=== PATIENT | male | born 1965 | race Hispanic/Latino ===

== ENCOUNTER 2018-12-23 08:56 | Observation (INO) | payer OTHER ==
--- NOTE | 2018-12-23 09:24 | ED PDOC ---
HPI: Chest Pain Time Seen by Provider: 12/23/18 09:07 Chief Complaint (Nursing): Chest Pain History Per: Patient Onset/Duration Of Symptoms: Days (1) Current Symptoms Are (Timing): Still Present Severity: Mild Quality: Tightness Associated Symptoms: denies: Dyspnea, Diaphoresis Modifying Factors: None Exacerbating Factors: None Alleviating Factors: None Additional Complaint(s): Chest tightness radiating to left shoulder since last night. Denies nausea or SOB. Had similar episode 1 year ago with elevated Troponins, had cardiac cath afterward which was normal. Denies cough or fever. Denies calf pain or swelling. Past Medical History Vital Signs: Last Vital Signs Temp Pulse Resp BP Pulse Ox 98 12/23/18 09:02 Primary Care Provider: FAMILY PROVIDER,NO - Medical History PMH: HTN Other PMH: Elevaterd troponin - Family History Family History: States: Unknown Family Hx - Allergies Allergies/Adverse Reactions: Allergies Allergy/AdvReac Type Severity Reaction Status Date / Time No Known Allergies Allergy Verified 12/23/18 09:49 Review of Systems ROS Statement: Except As Marked, All Systems Reviewed And Found Negative Cardiovascular: Positive for: Chest Pain Physical Exam - Reviewed Nursing Documentation Reviewed: Yes Vital Signs Reviewed: Yes - Physical Exam Appears: Positive for: Non-toxic, No Acute Distress Head Exam: Positive for: ATRAUMATIC, NORMAL INSPECTION, NORMOCEPHALIC Skin: Positive for: Normal Color, Warm, DRY Eye Exam: Positive for: EOMI, Normal appearance, PERRL ENT: Positive for: Normal ENT Inspection Neck: Positive for: Normal, Painless ROM Cardiovascular/Chest: Positive for: Regular Rate, Rhythm, Chest Non Tender Respiratory: Positive for: CNT, Normal Breath Sounds Gastrointestinal/Abdominal: Positive for: Normal Exam, Soft Back: Positive for: Normal Inspection Extremity: Positive for: Normal ROM. Negative for: Calf Tenderness, Swelling Neurological/Psych: Positive for: Awake, Alert, Normal Tone - Laboratory Results Result Diagrams: 12/23/18 09:27 12/23/18 09:27 - ECG O2 Sat by Pulse Oximetry: 98 Disposition - Clinical Impression Clinical Impression: Chest pain - Patient ED Disposition Is Patient to be Admitted: Yes - Disposition Disposition Time: 10:33 Condition: FAIR Forms: [employer] (American) - Pt Status Changed To: Hospital Disposition Of: Observation - POA Present On Arrival: None
[2018-12-23 09:31] LABS: BASO % 0.8 % (0.0-2.0); EOS # 0.1 K/uL (0.0-0.7); EOS % 1.6 % (0.0-4.0); HEMOGLOBIN 15.8 g/dL (12.0-18.0); LYMPH # 1.4 K/uL (1.0-4.3); LYMPH % 23.8 % (20.0-40.0); MEAN CELL VOLUME 90.8 fl (80.0-94.0); MEAN CORPUSCULAR HEMOGLOBIN 31.4 pg (27.0-31.0); MEAN CORPUSCULAR HGB CONC 34.6 g/dL (33.0-37.0); MEAN PLATELET VOLUME 7.1 fl (7.2-11.7); MONO # 0.6 K/uL (0.0-0.8); MONO % 10.5 % (0.0-10.0); NEUT # 3.8 K/uL (1.8-7.0); NEUT % 63.3 % (50.0-75.0); NRBC % 0.1 % (0.0-0.0); RBC 5.03 Mil/uL (4.40-5.90); RED CELL DISTRIBUTION WIDTH 13.1 % (11.5-14.5)
[2018-12-23 09:46] LABS: ALB/GLOB RATIO 1.6 (1.0-2.1); ALBUMIN 4.2 g/dL (3.5-5.0); ALT/SGPT 33 U/L (21-72); AST/SGOT 30 U/L (17-59); BLOOD UREA NITROGEN 16 mg/dl (9-20); CALCIUM 8.8 mg/dL (8.4-10.2); GFR NON-AFRICAN AMERICAN > 60
--- NOTE | 2018-12-23 11:14 | RAD ---
Date of service: 12/23/2018 HISTORY: chest pain COMPARISON: No prior. TECHNIQUE: Chest PA and lateral views FINDINGS: LUNGS: No active pulmonary disease. PLEURA: No significant pleural effusion identified. No pneumothorax apparent. CARDIOVASCULAR: No aortic atherosclerotic calcification present. Normal cardiac size. No pulmonary vascular congestion. OSSEOUS STRUCTURES: No significant abnormalities. VISUALIZED UPPER ABDOMEN: Normal. OTHER FINDINGS: None. IMPRESSION: No active disease.
[2018-12-23 13:06] VITALS: RESP 18
[2018-12-24 04:53] VITALS: TEMP 97.9
[2018-12-24 08:10] VITALS: BP 126/84; O2SAT 97
--- NOTE | 2018-12-24 09:15 | CP.PCM.CON ---
History of Present Illness - History of Present Illness History of Present Illness: patient seen examined. full consutl to follow cardiac enzymes negative Normal carh one year ago as per patient recommend Indocin 25 mg BID x 7 days can d/c home. outpatient follow up Past Patient History - Past Medical History & Family History Past Medical History?: Yes - Past Social History Smoking Status: Never Smoked - CARDIAC Hx Cardiac Disorders: Yes - PULMONARY Hx Respiratory Disorders: No - NEUROLOGICAL Hx Neurological Disorder: No - HEENT Hx HEENT Problems: No - RENAL Hx Chronic Kidney Disease: No - ENDOCRINE/METABOLIC Hx Endocrine Disorders: No - HEMATOLOGICAL/ONCOLOGICAL Hx Blood Disorders: No Hx AIDS: No Hx Human Immunodeficiency Virus (HIV): No - INTEGUMENTARY Hx Dermatological Problems: No - MUSCULOSKELETAL/RHEUMATOLOGICAL Hx Musculoskeletal Disorders: No Hx Falls: No - GASTROINTESTINAL Hx Gastrointestinal Disorders: No - GENITOURINARY/GYNECOLOGICAL Hx Genitourinary Disorders: No - PSYCHIATRIC Hx Psychophysiologic Disorder: No Hx Substance Use: No - SURGICAL HISTORY Hx Angiogram: Yes Meds Allergies/Adverse Reactions: Allergies Allergy/AdvReac Type Severity Reaction Status Date / Time No Known Allergies Allergy Verified 12/23/18 09:49 - Medications Medications: Current Medications Acetaminophen (Tylenol 325mg Tab) 650 mg PO Q6 PRN PRN Reason: Pain, moderate (4-7) Lisinopril (Zestril) 10 mg PO DAILY [facility] Last Admin: 12/24/18 08:52 Dose: 10 mg Results - Vital Signs Recent Vital Signs: Last Vital Signs Temp 97.9 F 12/24/18 08:10 Pulse 65 12/24/18 08:52 Resp 18 12/24/18 08:10 BP 126/84 12/24/18 08:52 Pulse Ox 97 12/24/18 08:10 - Labs Result Diagrams: 12/23/18 09:27 12/23/18 09:27 Labs: Laboratory Results - last 24 hr 12/23/18 12/23/18 12/23/18 09:27 09:27 19:52 WBC 6.0 RBC 5.03 Hgb 15.8 Hct 45.6 MCV 90.8 MCH 31.4 H MCHC 34.6 RDW 13.1 Plt Count 283 MPV 7.1 L Neut % (Auto) 63.3 Lymph % (Auto) 23.8 [place] % (Auto) 10.5 H Eos % (Auto) 1.6 Baso % (Auto) 0.8 Neut # (Auto) 3.8 Lymph # (Auto) 1.4 [place] # (Auto) 0.6 Eos # (Auto) 0.1 Baso # (Auto) 0.0 Sodium 137 Potassium 4.1 Chloride 104 Carbon Dioxide 24 Anion Gap 13 BUN 16 Creatinine 0.8 Est GFR ( Amer) > 60 Est GFR (Non-Af Amer) > 60 Random Glucose 99 Calcium 8.8 Total Bilirubin 0.8 AST 30 ALT 33 Alkaline Phosphatase 50 Troponin I < 0.0120 < 0.0120 Total Protein 6.8 Albumin 4.2 Globulin 2.7 Albumin/Globulin Ratio 1.6 12/24/18 05:45 WBC RBC Hgb Hct MCV MCH MCHC RDW Plt Count MPV Neut % (Auto) Lymph % (Auto) [place] % (Auto) Eos % (Auto) Baso % (Auto) Neut # (Auto) Lymph # (Auto) [place] # (Auto) Eos # (Auto) Baso # (Auto) Sodium Potassium Chloride Carbon Dioxide Anion Gap BUN Creatinine Est GFR ( Amer) Est GFR (Non-Af Amer) Random Glucose Calcium Total Bilirubin AST ALT Alkaline Phosphatase Troponin I < 0.0120 Total Protein Albumin Globulin Albumin/Globulin Ratio
--- NOTE | 2018-12-24 09:15 | CP.PCM.CON ---
Past Patient History - Past Medical History & Family History Past Medical History?: Yes - Past Social History Smoking Status: Never Smoked - CARDIAC Hx Cardiac Disorders: Yes - PULMONARY Hx Respiratory Disorders: No - NEUROLOGICAL Hx Neurological Disorder: No - HEENT Hx HEENT Problems: No - RENAL Hx Chronic Kidney Disease: No - ENDOCRINE/METABOLIC Hx Endocrine Disorders: No - HEMATOLOGICAL/ONCOLOGICAL Hx Blood Disorders: No Hx AIDS: No Hx Human Immunodeficiency Virus (HIV): No - INTEGUMENTARY Hx Dermatological Problems: No - MUSCULOSKELETAL/RHEUMATOLOGICAL Hx Musculoskeletal Disorders: No Hx Falls: No - GASTROINTESTINAL Hx Gastrointestinal Disorders: No - GENITOURINARY/GYNECOLOGICAL Hx Genitourinary Disorders: No - PSYCHIATRIC Hx Psychophysiologic Disorder: No Hx Substance Use: No - SURGICAL HISTORY Hx Angiogram: Yes Meds Allergies/Adverse Reactions: Allergies Allergy/AdvReac Type Severity Reaction Status Date / Time No Known Allergies Allergy Verified 12/23/18 09:49 - Medications Medications: Current Medications Acetaminophen (Tylenol 325mg Tab) 650 mg PO Q6 PRN PRN Reason: Pain, moderate (4-7) Aspirin (Aspirin Chewable) 81 mg PO DAILY [facility] Indomethacin (Indocin) 25 mg PO BID [facility] Lisinopril (Zestril) 10 mg PO DAILY [facility] Last Admin: 12/24/18 08:52 Dose: 10 mg Results - Vital Signs Recent Vital Signs: Last Vital Signs Temp 97.9 F 12/24/18 08:10 Pulse 65 12/24/18 08:52 Resp 18 12/24/18 08:10 BP 126/84 12/24/18 08:52 Pulse Ox 97 12/24/18 08:10 - Labs Result Diagrams: 12/23/18 09:27 12/23/18 09:27 Labs: Laboratory Results - last 24 hr 12/23/18 12/23/18 12/23/18 09:27 09:27 19:52 WBC 6.0 RBC 5.03 Hgb 15.8 Hct 45.6 MCV 90.8 MCH 31.4 H MCHC 34.6 RDW 13.1 Plt Count 283 MPV 7.1 L Neut % (Auto) 63.3 Lymph % (Auto) 23.8 [place] % (Auto) 10.5 H Eos % (Auto) 1.6 Baso % (Auto) 0.8 Neut # (Auto) 3.8 Lymph # (Auto) 1.4 [place] # (Auto) 0.6 Eos # (Auto) 0.1 Baso # (Auto) 0.0 Sodium 137 Potassium 4.1 Chloride 104 Carbon Dioxide 24 Anion Gap 13 BUN 16 Creatinine 0.8 Est GFR ( Amer) > 60 Est GFR (Non-Af Amer) > 60 Random Glucose 99 Calcium 8.8 Total Bilirubin 0.8 AST 30 ALT 33 Alkaline Phosphatase 50 Troponin I < 0.0120 < 0.0120 Total Protein 6.8 Albumin 4.2 Globulin 2.7 Albumin/Globulin Ratio 1.6 12/24/18 05:45 WBC RBC Hgb Hct MCV MCH MCHC RDW Plt Count MPV Neut % (Auto) Lymph % (Auto) [place] % (Auto) Eos % (Auto) Baso % (Auto) Neut # (Auto) Lymph # (Auto) [place] # (Auto) Eos # (Auto) Baso # (Auto) Sodium Potassium Chloride Carbon Dioxide Anion Gap BUN Creatinine Est GFR ( Amer) Est GFR (Non-Af Amer) Random Glucose Calcium Total Bilirubin AST ALT Alkaline Phosphatase Troponin I < 0.0120 Total Protein Albumin Globulin Albumin/Globulin Ratio
[2018-12-24 11:22] VITALS: PULSE 75
--- NOTE | 2018-12-24 13:41 | CP.PCM.HP ---
History of Present Illness - History of Present Illness History of Present Illness: 52 yo male with history of elevated troponins with normal cath 1 yr ago presented to ED with chest pain. No other complaints offered at this time. No fever, chills, abdominal pain, or triggers. Patient is new to area and has no follow up with PMD or cardiology. Meds: as per chart Allergies: as per chart Fam hx: as per chart Present on Admission - Present on Admission Any Indicators Present on Admission: No Review of Systems - Review of Systems All systems: reviewed and no additional remarkable complaints except (mentioned above) Past Patient History - Past Medical History & Family History Past Medical History?: Yes - Past Social History Smoking Status: Never Smoked - CARDIAC Hx Cardiac Disorders: Yes - PULMONARY Hx Respiratory Disorders: No - NEUROLOGICAL Hx Neurological Disorder: No - HEENT Hx HEENT Problems: No - RENAL Hx Chronic Kidney Disease: No - ENDOCRINE/METABOLIC Hx Endocrine Disorders: No - HEMATOLOGICAL/ONCOLOGICAL Hx Blood Disorders: No Hx AIDS: No Hx Human Immunodeficiency Virus (HIV): No - INTEGUMENTARY Hx Dermatological Problems: No - MUSCULOSKELETAL/RHEUMATOLOGICAL Hx Musculoskeletal Disorders: No Hx Falls: No - GASTROINTESTINAL Hx Gastrointestinal Disorders: No - GENITOURINARY/GYNECOLOGICAL Hx Genitourinary Disorders: No - PSYCHIATRIC Hx Psychophysiologic Disorder: No Hx Substance Use: No - SURGICAL HISTORY Hx Angiogram: Yes Meds Home Medications: Home Medication List Medication Instructions Recorded Confirmed Type Acetaminophen [Tylenol 325mg tab] 650 mg PO Q6 PRN tab 12/24/18 Rx Aspirin [Aspirin Chewable] 81 mg PO DAILY chew 12/24/18 Rx Indomethacin [Indocin] 25 mg PO BID 7 Days #14 cap 12/24/18 Rx Lisinopril [Zestril] 10 mg PO DAILY tab 12/24/18 Rx Allergies/Adverse Reactions: Allergies Allergy/AdvReac Type Severity Reaction Status Date / Time No Known Allergies Allergy Verified 12/23/18 09:49 Physical Exam - Constitutional Appears: Non-toxic, No Acute Distress - Head Exam Head Exam: NORMAL INSPECTION - Eye Exam Eye Exam: Normal appearance - Respiratory Exam Respiratory Exam: Clear to Auscultation Bilateral, NORMAL BREATHING PATTERN - Cardiovascular Exam Cardiovascular Exam: REGULAR RHYTHM, +S1, +S2 - GI/Abdominal Exam GI & Abdominal Exam: Soft - Extremities Exam Extremities exam: Positive for: normal inspection - Neurological Exam Neurological exam: Alert, Oriented x3 - Psychiatric Exam Psychiatric exam: Normal Affect, Normal Mood Results - Vital Signs Recent Vital Signs: Last Vital Signs Temp 97.9 F 12/24/18 08:10 Pulse 75 12/24/18 09:00 Resp 18 12/24/18 08:10 BP 126/84 12/24/18 08:52 Pulse Ox 97 12/24/18 08:10 - Labs Result Diagrams: 12/23/18 09:27 12/23/18 09:27 Labs: Laboratory Results - last 24 hr 12/23/18 12/24/18 19:52 05:45 Troponin I < 0.0120 < 0.0120 Assessment & Plan (1) Chest pain Status: Acute - Assessment and Plan (Free Text) Plan: available diagnostic data reviewed monitor labs monitor vitals troponin x 3 cardiology consulted appreciate recommendations rest of plan as ordered
== END 2018-12-24 11:23 | disposition home or self-care (01) ==
LOC: H.ER 08:56 → H.ERHOLD 10:34 → H.TEL 12:38
PROVIDERS: ADMIT Family Medicine; ATTEND Family Medicine
DX: R07.89 Other chest pain (principal); I10 Essential (primary) hypertension; Z79.82 Long term (current) use of aspirin; Z79.899 Other long term (current) drug therapy
CPT/HCPCS: 36415; 71046; 80053; 84484; 85025; 99285; G0378